=== PATIENT | male | born 2000 | race African-American/Black ===

== ENCOUNTER 2024-11-22 14:28 | Emergency (ER) | payer OTHER ==
[2024-11-22 14:34] VITALS: TEMP 98.6
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
[2024-11-22] MEDS: ACETAMINOPHEN TAB 325 MG TAB PO STA (14:55)
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
[2024-11-22 16:23] VITALS: BP 115/64; PULSE 76; RESP 18
== END 2024-11-22 16:32 | disposition home or self-care (01) ==
LOC: EC 14:28
DX: R51.9 Headache, unspecified (principal); Z91.018 Allergy to other foods; V89.2XXA Person injured in unspecified motor-vehicle accident, traffic, initial encounter; W22.01XA Walked into wall, initial encounter; Y93.01 Activity, walking, marching and hiking
CPT/HCPCS: 70450; 99284